=== PATIENT | male | born 1950 | race African-American/Black ===

== ENCOUNTER 2023-12-13 12:25 | Emergency (ER) | payer OTHER ==
[~2023-12-13] VITALS: Ht 175.3 cm; Wt 100.0 kg
[~2023-12-13 12:25] MED LIST: NOCURR
[2023-12-13 12:29] VITALS: TEMP 98.7
[2023-12-13] MEDS ORDERED: CARV6.2534 PO (15:20)
[2023-12-13] MEDS ORDERED: VALS160T31 PO (15:20)
[2023-12-13] MEDS ORDERED: AMOX500T2 PO (15:20)
[2023-12-13] MEDS ORDERED: LEVO88TA7 PO (15:20)
[2023-12-13] MEDS ORDERED: IBUP-2077 PO (15:20)
[2023-12-13] MEDS ORDERED: AMIO200 PO (15:20)
[2023-12-13] MEDS ORDERED: APAL60TA PO (15:20)
[2023-12-13] MEDS ORDERED: CEPH-558 PO (15:22)
[2023-12-13] MEDS ORDERED: DOXY-354 PO (15:22)
[2023-12-13] MEDS ORDERED: TRAM50TA5 PO (15:22)
[2023-12-13] MEDS ORDERED: IBUP-1554 PO (15:22)
[2023-12-13 15:25] VITALS: BP 149/90; PULSE 72; RESP 18
[2023-12-13] MEDS: CEPHALEXIN MONOHYDRATE 500 MG CAPSULE PO ONE (15:27)
[2023-12-13] MEDS: DOXYCYCLINE HYCLATE 100 MG TABLET PO ONE (15:27)
[2023-12-13] MEDS: HYDROCODONE/ACETAMINOPHEN 5-325 MG TABLET PO ONE (15:27)
== END 2023-12-13 16:09 | disposition home or self-care (01) ==
LOC: EMS 12:29
DX: L02.512 Cutaneous abscess of left hand (principal); I10 Essential (primary) hypertension; F17.210 Nicotine dependence, cigarettes, uncomplicated
CPT/HCPCS: 26010; 99284; Z7502; Z7610